=== PATIENT | female | born 1960 | race African-American/Black ===

== ENCOUNTER 2020-08-21 22:40 | Observation (INO) | payer OTHER ==
[~2020-08-21] VITALS: Ht 170.2 cm; Wt 56.4 kg
[2020-08-21 22:43] VITALS: BP 196/111
[2020-08-21 23:09] LABS: HEMATOCRIT 38.8 % (37.0-47.0); HEMOGLOBIN 12.6 gm/dL (12.0-15.0); MCH 28.5 pg (26.0-34.0); MCHC 32.4 g/dL (28.0-37.0); MCV 88.1 fL (80.0-100.0); PLATELET COUNT 155 thou/uL (150-400); RDW 14.7 % (10.5-14.5); WBC 5.2 thou/uL (4.0-11.0)
[2020-08-21 23:13] LABS: URINE BILIRUBIN NEGATIVE (Negative); URINE BLOOD NEGATIVE (Negative); URINE CLARITY CLEAR; URINE COLOR YELLOW; URINE GLUCOSE-RANDOM* NEGATIVE (Negative); URINE KETONES NEGATIVE (Negative); URINE LEUKOCYTES-REFLEX TRACE (Negative); URINE NITRITE-REFLEX NEGATIVE (Negative); URINE PROTEIN (DIPSTICK) TRACE (Negative); URINE SPECIFIC GRAVITY 1.015 (1.005-1.035); URINE UROBILINOGEN 0.2 E.U./dl (0.2-1.0)
[2020-08-21 23:22] LABS: AMP/METHAMP Negative (Negative); BARBITURATES Negative (Negative); BENZODIAZEPINES Negative (Negative); COCAINE POSITIVE (Negative); METHADONE Negative (Negative); OPIATES Negative (Negative); PCP Negative (Negative)
[2020-08-21 23:26] LABS: ALBUMIN 3.6 g/dL (3.4-5.0); ANION GAP 6 mmol/L (7-16); BUN 25 mg/dL (7-18); CHLORIDE 99 mmol/L (98-107); CO2 28 mmol/L (21-32); CREATININE 0.8 mg/dL (0.6-1.0); GLUCOSE 79 mg/dL (74-106); MAGNESIUM 2.1 mg/dL (1.8-2.4); SALICYLATE 4.7 mg/dL (2.8-20.0); SGPT 26 U/L (30-65); SODIUM 133 mmol/L (136-145); TOTAL BILIRUBIN 0.5 mg/dL (0.2-1.0); TOTAL PROTEIN 8.4 g/dL (6.4-8.2); TROPONIN-I <0.06 ng/mL (<0.06)
[2020-08-21 23:31] LABS: CALCIUM 9.6 mg/dL (8.5-10.1); SGOT 49 U/L (15-37)
[2020-08-21 23:32] LABS: POTASSIUM 6.1 mmol/L (3.5-5.1)
[2020-08-22 00:18] LABS: ABSOLUTE NEUTROPHILS 2.2 thou/uL (1.4-8.2); EOSINOPHILS 2.6 % (0.0-3.0)
[2020-08-22 00:19] LABS: PLATELET ESTIMATE NORMAL
[2020-08-22 02:23] VITALS: BP 155/93
[2020-08-22 02:30] VITALS: BP 164/98
[2020-08-22 03:06] VITALS: BP 166/90
--- NOTE | 2020-08-22 04:58 | NUR ---
Pt admited from ED @0245 w/AMS,HTN,Cocaine use. Lethargic and alert to self only. Awakens when aroused and cries when informed she's in the hospital asking "Where's my purse? "I want to go home" but falls back to sleep quickly. Able to answer simple questions. Afebrile but BP elevated,medicated per EMAR with relief noted 122/58. Med rec not reconciled as pt is not alert enough to remember medications. Skin intact though dry. NSR on telemetry. Fall precautions in place, will continue to monitor pt.
[2020-08-22 05:08] VITALS: BP 122/58
--- NOTE | 2020-08-22 07:28 | EKG ---
[facility] [address] [place] [address] ELECTROCARDIOGRAM REPORT Name: VENUS MCCOY Room #: 454-P ADM IN M.R.#: [id number] Admission: 08/22/20 Attend Phys: Elia Gutierrez MD Discharge: Date of : 62 Report #: [id number] THIS REPORT FOR: cc: [facility] - Clinic physician unknown FAM - Clinic physician unknown Collin Britton MD FACC ~ <ELECTRONICALLY SIGNED> By: Collin Britton MD, FACC 08/22/20 0727 07 07 Collin Britton MD, FACC /EPI
[2020-08-22 07:34] VITALS: BP 132/85
--- NOTE | 2020-08-22 10:43 | NUR ---
discussed during prime time, pt wanting to go home. will be dc today. cm tried to visit with rick via phone call, no answer. will cont following as needed for dc needs.
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
[2020-08-22 13:41] VITALS: BP 132/85
== END 2020-08-22 14:31 | disposition home or self-care (01) ==
LOC: ER 22:40 → EROBS 08-22 02:22 → 4W 08-22 02:22
PROVIDERS: Emergency Medicine; ADMIT Hospitalist; ATTEND Hospitalist
DX: F19.90 Other psychoactive substance use, unspecified, uncomplicated (principal); I10 Essential (primary) hypertension; F32.9 Major depressive disorder, single episode, unspecified; G93.41 Metabolic encephalopathy; F17.200 Nicotine dependence, unspecified, uncomplicated; Z79.899 Other long term (current) drug therapy